=== PATIENT | female | born 1955 | race Caucasian/White ===

== ENCOUNTER 2025-01-06 11:38 | Emergency (ER) | payer MEDICARE, BC ==
[~2025-01-06] VITALS: Ht 177.8 cm; Wt 83.9 kg
[2025-01-06 11:40] VITALS: BP 131/87
[2025-01-06] MEDS ORDERED: ONDANSETRON 4 MG/2 ML VIAL ONE (11:52)
[2025-01-06 12:11] LABS: PLATELET COUNT (AUTO) 209 K/uL (179-408); RED BLOOD CELL COUNT(AUTO) 4.92 MIL/uL (3.63-4.92); RED CELL DISTRIBUTION WIDTH 13.1 % (12.3-17.7); WHITE BLOOD COUNT (AUTO) 7.7 K/uL (3.8-11.8)
[2025-01-06] MEDS: ONDANSETRON 4 MG/2 ML VIAL IV ONE (12:12)
[2025-01-06 12:21] LABS: CREATININE 0.9 mg/dL (0.6-1.3); SODIUM SERUM 135 mmol/L (136-145); UREA NITROGEN, BLOOD 16 mg/dL (7-18)
[2025-01-06 12:29] LABS: ETHANOL < 3 MG/DL (0-10)
[2025-01-06 12:34] LABS: ASPARTATE AMINOTRANSFERASE 32 U/L (15-37); TOTAL PROTEIN, SERUM 8.1 g/dL (6.4-8.2)
[2025-01-06] MEDS ORDERED: METOCLOPRAMIDE HCL 10 MG/2 ML VIAL ONE (12:34)
[2025-01-06] MEDS: IV NORMAL SALINE 1000 ML BAG IV ONE (12:43)
[2025-01-06] MEDS: METOCLOPRAMIDE HCL 10 MG/2 ML VIAL IV ONE (12:43)
[2025-01-06] MEDS ORDERED: diphenhydrAMINE 50 MG/1 ML VIAL ONE (12:45)
[2025-01-06] MEDS: diphenhydrAMINE 50 MG/1 ML VIAL IV ONE (12:49)
[2025-01-06] MEDS ORDERED: POTASSIUM CHLORIDE 20 MEQ TAB.PRT.SR ONE (13:05)
[2025-01-06] MEDS: POTASSIUM CHLORIDE 20 MEQ TAB.PRT.SR PO ONE (13:07)
[2025-01-06] MEDS ORDERED: ONDA4TAB5 PO (13:22)
[2025-01-06] MEDS ORDERED: PANT40TA49 PO (13:32)
[2025-01-06] MEDS ORDERED: FLUT12AE3 INH (13:32)
[2025-01-06] MEDS ORDERED: ESCI-9 PO (13:32)
[2025-01-06 13:51] VITALS: BP 136/90; TEMP 98.1; O2SAT 97
== END 2025-01-06 13:56 | disposition home or self-care (01) ==
LOC: ER 11:38
DX: R55 Syncope and collapse (principal); E86.0 Dehydration; J45.909 Unspecified asthma, uncomplicated; M48.02 Spinal stenosis, cervical region; R56.9 Unspecified convulsions; Z79.51 Long term (current) use of inhaled steroids; Z79.899 Other long term (current) drug therapy; Z88.0 Allergy status to penicillin; Z88.6 Allergy status to analgesic agent
CPT/HCPCS: 80076; 80048; 82140; 84443; 85025; 85730; 87040; 84484 ×2; 36415; 71045; 70450; 72125; 93005; 99285; 96361; 96374; 96375; 83605; 80299; 80320; J1200; J2765; J2405; J7040; A4606; A4663; G0480